=== PATIENT | male | born 2000 | race African-American/Black ===

== ENCOUNTER 2020-01-15 10:59 | Emergency (ER) | payer OTHER ==
[~2020-01-15] VITALS: Ht 144.8 cm; Wt 54.5 kg
[2020-01-15 14:10] VITALS: BP 130/54
== END 2020-01-15 14:15 | disposition home or self-care (01) ==
LOC: EMS 11:08
DX: B34.9 Viral infection, unspecified (principal); R06.02 Shortness of breath; R42 Dizziness and giddiness; R11.2 Nausea with vomiting, unspecified; Z03.818 Encounter for observation for suspected exposure to other biological agents ruled out
CPT/HCPCS: 99283; U0003

== ENCOUNTER 2020-02-28 15:52 | Emergency (ER) | payer OTHER ==
[~2020-02-28] VITALS: Ht 144.8 cm; Wt 59.1 kg
[2020-02-28] MEDS ORDERED: LIDOCAINE/PF 1% 5 ML VIAL INJ ONE (17:45)
[2020-02-28] MEDS ORDERED: SULFAMETHOX/TRIMETH DS 800-160 MG/TABLET PO ONE (17:45)
[2020-02-28] MEDS ORDERED: IBUPROFEN 400 MG TABLET PO ONE (17:45)
[2020-02-28] MEDS ORDERED: CEPHALEXIN MONOHYDRATE 500 MG CAPSULE PO ONE (17:45)
[2020-02-28 18:30] VITALS: BP 147/66
== END 2020-02-28 18:50 | disposition home or self-care (01) ==
LOC: EMS 15:53
DX: N49.2 Inflammatory disorders of scrotum (principal)
CPT/HCPCS: 55100; 99284; J2001

== ENCOUNTER 2020-04-06 10:00 | Emergency (ER) | payer OTHER ==
[~2020-04-06] VITALS: Ht 149.9 cm; Wt 57.7 kg
[2020-04-06] MEDS ORDERED: ALBU8HFA IH (10:04)
[2020-04-06 10:55] VITALS: BP 114/63
== END 2020-04-06 11:19 | disposition home or self-care (01) ==
LOC: EMS 10:03
DX: N49.2 Inflammatory disorders of scrotum (principal); F12.90 Cannabis use, unspecified, uncomplicated
CPT/HCPCS: 99283; Z7502

== ENCOUNTER 2020-04-26 00:53 | Emergency (ER) | payer OTHER ==
[~2020-04-26] VITALS: Ht 149.9 cm; Wt 59.1 kg
[~2020-04-26 00:53] MED LIST: ALBU8HFA IH
[2020-04-26] MEDS ORDERED: ACETAMINOPHEN 500 MG TABLET PO ONE (02:30)
[2020-04-26 05:15] VITALS: BP 128/71
== END 2020-04-26 05:29 | disposition home or self-care (01) ==
LOC: EMS 00:53
DX: S93.401A Sprain of unspecified ligament of right ankle, initial encounter (principal); J45.909 Unspecified asthma, uncomplicated; F12.90 Cannabis use, unspecified, uncomplicated; V49.40XA Driver injured in collision with unspecified motor vehicles in traffic accident, initial encounter; Y93.89 Activity, other specified; Y92.89 Other specified places as the place of occurrence of the external cause; Y99.8 Other external cause status
CPT/HCPCS: 29515; 73610-TC; Z7502; Z7610

== ENCOUNTER 2020-04-29 16:08 | Emergency (ER) | payer OTHER ==
[~2020-04-29] VITALS: Ht 149.9 cm; Wt 54.5 kg
[2020-04-29 18:00] VITALS: BP 121/77
== END 2020-04-29 18:23 | disposition home or self-care (01) ==
LOC: EMS 16:08
DX: S70.01XA Contusion of right hip, initial encounter (principal); S33.5XXA Sprain of ligaments of lumbar spine, initial encounter; X58.XXXA Exposure to other specified factors, initial encounter; Y93.89 Activity, other specified; Y92.89 Other specified places as the place of occurrence of the external cause; Y99.8 Other external cause status
CPT/HCPCS: 72100

== ENCOUNTER 2020-07-02 08:57 | Emergency (ER) | payer OTHER ==
[~2020-07-02] VITALS: Ht 149.9 cm; Wt 55.9 kg
[2020-07-02 09:16] VITALS: BP 121/92
== END 2020-07-02 09:52 | disposition home or self-care (01) ==
LOC: EMS 08:57
DX: N49.2 Inflammatory disorders of scrotum (principal); J45.909 Unspecified asthma, uncomplicated; F12.90 Cannabis use, unspecified, uncomplicated

== ENCOUNTER 2020-08-01 13:14 | Emergency (ER) | payer OTHER ==
[~2020-08-01] VITALS: Ht 147.3 cm; Wt 56.8 kg
[2020-08-01 16:53] VITALS: BP 136/89
== END 2020-08-01 17:12 | disposition home or self-care (01) ==
LOC: EMS 13:15
DX: J18.0 Bronchopneumonia, unspecified organism (principal); J02.9 Acute pharyngitis, unspecified; R07.89 Other chest pain; J45.909 Unspecified asthma, uncomplicated; F12.90 Cannabis use, unspecified, uncomplicated
CPT/HCPCS: 93005; 71045-TC

== ENCOUNTER 2021-06-19 06:54 | Emergency (ER) | payer OTHER ==
[~2021-06-19] VITALS: Ht 149.9 cm; Wt 68.2 kg
[2021-06-19] MEDS ORDERED: SODIUM CHLORIDE 0.9% 1,000 ML IV ONE (08:00)
[2021-06-19 08:17] LABS: BASOPHILS % (AUTO) 0.5 % (0.0-2.0); EOSINOPHILS % (AUTO) 0.4 % (1.0-6.0); HEMATOCRIT 42.3 % (41-53); HEMOGLOBIN 14.3 g/dL (13.5-17.5); LYMPHOCYTES # (AUTO) 1.3 K/uL (1.0-4.8); LYMPHOCYTES % (AUTO) 16.5 % (22.0-44.0); MEAN CORPUSCULAR HEMOGLOBIN 30.8 pg (26.0-34.0); MEAN CORPUSCULAR HGB CONC 33.8 G/dL (31.0-37.0); MEAN CORPUSCULAR VOLUME 91 fL (80-100); MONOCYTES # (AUTO) 0.6 K/uL (0.1-1.0); MONOCYTES % (AUTO) 7.7 % (2.0-9.0); NEUTROPHILS # (AUTO) 5.9 K/uL (1.8-7.7); NEUTROPHILS % (AUTO) 74.9 % (40.0-70.0); PLATELET COUNT (AUTO) 199 K/uL (150-450); RED BLOOD CELL COUNT(AUTO) 4.64 MIL/uL (4.50-5.90); RED CELL DISTRIBUTION WIDTH 12.5 % (11.5-14.5)
[2021-06-19 08:25] LABS: ANION GAP 9 mmol/L (8-16); CALCIUM, TOTAL 9.6 mg/dL (8.8-10.5); CARBON DIOXIDE 31 mmol/L (22-29); CHLORIDE 103 mmol/L (98-107); CREATININE 0.92 mg/dL (0.60-1.30); GLOMERULAR FILTR. RATE CALC > 60 mL/min (>60); GLUCOSE,RANDOM 99 mg/dL (70-110); POTASSIUM 3.8 mmol/L (3.5-5.1); SODIUM SERUM 143 mmol/L (136-145); UREA NITROGEN, BLOOD 11 mg/dL (7-18)
[2021-06-19 08:26] LABS: COVID AG,FIA SOURCE NASOPHARYNGEAL
[2021-06-19 08:37] LABS: SALICYLATE < 2.8 mg/dL (2.8-20.0)
[2021-06-19 08:51] LABS: ALANINE AMINOTRANSFERASE 23 U/L (12-78); ALBUMIN 4.6 g/dL (3.4-5.0); ALKALINE PHOSPHATASE 59 U/L (46-116); ASPARTATE AMINOTRANSFERASE 19 U/L (15-37); BILIRUBIN,TOTAL 0.6 mg/dL (0.1-1.0); CREATINE KINASE, TOTAL ONLY 137 U/L (39-308); TOTAL PROTEIN, SERUM 8.3 g/dL (6.4-8.2)
[2021-06-19 08:52] LABS: ACETAMINOPHEN < 2 mcg/mL (10-30)
[2021-06-19 08:53] LABS: INFLUENZA TYPE A NEGATIVE FOR TYPE A (NEGATIVE); INFLUENZA TYPE B NEGATIVE FOR TYPE B (NEGATIVE)
[2021-06-19 11:10] VITALS: BP 144/52
== END 2021-06-19 11:35 | disposition home or self-care (01) ==
LOC: EMS 06:58
DX: R25.8 Other abnormal involuntary movements (principal); Z20.822 Contact with and (suspected) exposure to COVID-19
CPT/HCPCS: 36415; 70450; 71045; 80053; 82550; 85025; 87040; 87426; 87804; 93005; 96360; 99285; G0480 ×2; G0481; U0003

== ENCOUNTER 2021-10-11 11:49 | Emergency (ER) | payer OTHER ==
[~2021-10-11] VITALS: Ht 149.9 cm; Wt 50.0 kg
[2021-10-11 12:00] VITALS: BP 135/80
[2021-10-11 12:31] LABS: COVID AG,FIA SOURCE NASOPHARYNGEAL
== END 2021-10-11 13:18 | disposition home or self-care (01) ==
LOC: EMS 11:49
DX: Z20.822 Contact with and (suspected) exposure to COVID-19 (principal); F12.90 Cannabis use, unspecified, uncomplicated; J45.909 Unspecified asthma, uncomplicated; Z79.899 Other long term (current) drug therapy
CPT/HCPCS: 99283

== ENCOUNTER 2022-03-27 06:39 | Emergency (ER) | payer OTHER ==
[~2022-03-27] VITALS: Ht 142.2 cm; Wt 56.0 kg
[2022-03-27 06:45] VITALS: BP 137/84
[2022-03-27] MEDS ORDERED: DOXY-354 PO (18:29)
== END 2022-03-27 07:35 | disposition left against medical advice (07) ==
LOC: EMS 06:40
DX: Z53.21 Procedure and treatment not carried out due to patient leaving prior to being seen by health care provider (principal)

== ENCOUNTER 2022-03-27 16:01 | Emergency (ER) | payer OTHER ==
[~2022-03-27] VITALS: Ht 149.9 cm; Wt 50.9 kg
[2022-03-27 17:30] LABS: COVID AG,FIA SOURCE NASOPHARYNGEAL
[2022-03-27 17:38] LABS: APPEARANCE,URINE HAZY (CLEAR); BILIRUBIN,URINE NEGATIVE (NEGATIVE); GLUCOSE, URINE (UA) NEGATIVE (NEGATIVE); KETONES,URINE TRACE mg/dL (NEGATIVE); LEUKOCYTE ESTERASE ,URINE LARGE (NEGATIVE); NITRATE,URINE NEGATIVE (NEGATIVE); OCCULT BLOOD,URINE MODERATE (NEGATIVE); PROTEIN,URINE 30-70 mg/dL (NEGATIVE); SPECIFIC GRAVITIY, URINE 1.025 (1.003-1.030); UROBILINOGEN,URINE <=1.0 mg/dL (<=1.0)
[2022-03-27 17:52] LABS: BACTERIA,URINE Few /HPF (None Seen); WBC,URINE >100 /HPF (0-5)
[2022-03-27] MEDS ORDERED: DOXY-354 PO (18:29)
[2022-03-27] MEDS ORDERED: LIDOCAINE/PF 1% 2 ML VIAL IM ONE (18:30)
[2022-03-27] MEDS ORDERED: CefTRIAXone SODIUM 1 GM/VIAL IM ONE (18:30)
[2022-03-27] MEDS ORDERED: DOXYCYCLINE HYCLATE 100 MG TABLET PO ONE (18:30)
[2022-03-27 21:15] VITALS: BP 115/61
== END 2022-03-27 21:35 | disposition home or self-care (01) ==
LOC: EMS 16:03
DX: N34.2 Other urethritis (principal); N45.1 Epididymitis; J45.909 Unspecified asthma, uncomplicated; F12.90 Cannabis use, unspecified, uncomplicated; Z20.822 Contact with and (suspected) exposure to COVID-19
CPT/HCPCS: 99284; 87426; 81001; 87086; 76870; 87491; 87591; 96372; J0696; J3490

== ENCOUNTER 2022-07-18 18:28 | Emergency (ER) | payer OTHER ==
[~2022-07-18] VITALS: Ht 152.4 cm; Wt 59.1 kg
[~2022-07-18 18:28] MED LIST changes: +DOXY-354 PO
[2022-07-18 20:38] VITALS: BP 140/74
[2022-07-18] MEDS ORDERED: DOXY-354 PO (20:55)
[2022-07-18] MEDS ORDERED: CEPH-558 PO (20:55)
[2022-07-18] MEDS ORDERED: CEPHALEXIN MONOHYDRATE 500 MG CAPSULE PO ONE (21:00)
[2022-07-18] MEDS ORDERED: DOXYCYCLINE HYCLATE 100 MG TABLET PO ONE (21:00)
== END 2022-07-18 21:06 | disposition home or self-care (01) ==
LOC: EMS 18:28
DX: N49.2 Inflammatory disorders of scrotum (principal); F12.90 Cannabis use, unspecified, uncomplicated; J45.909 Unspecified asthma, uncomplicated
CPT/HCPCS: 99283

== ENCOUNTER 2022-11-27 23:49 | Emergency (ER) | payer OTHER ==
[~2022-11-27] VITALS: Ht 149.9 cm; Wt 59.1 kg
[~2022-11-27 23:49] MED LIST changes: +ALBU18HF12 IH; -ALBU8HFA IH; +CEPH-558 PO
[2022-11-28] MEDS ORDERED: LevETIRAcetam 1,000 MG in DEXTROSE 5%-WATER 100 ML IV ONE (01:30)
[2022-11-28 01:56] LABS: BASOPHILS % (AUTO) 0.6 % (0.0-2.0); EOSINOPHILS % (AUTO) 1.6 % (1.0-6.0); HEMATOCRIT 37.7 % (41-53); HEMOGLOBIN 12.6 g/dL (13.5-17.5); LYMPHOCYTES # (AUTO) 1.2 K/uL (1.0-4.8); LYMPHOCYTES % (AUTO) 18.2 % (22.0-44.0); MEAN CORPUSCULAR HEMOGLOBIN 29.7 pg (26.0-34.0); MEAN CORPUSCULAR HGB CONC 33.5 G/dL (31.0-37.0); MEAN CORPUSCULAR VOLUME 89 fL (80-100); MONOCYTES # (AUTO) 0.6 K/uL (0.1-1.0); MONOCYTES % (AUTO) 9.4 % (2.0-9.0); NEUTROPHILS # (AUTO) 4.8 K/uL (1.8-7.7); NEUTROPHILS % (AUTO) 70.2 % (40.0-70.0); PLATELET COUNT (AUTO) 224 K/uL (150-450); RED BLOOD CELL COUNT(AUTO) 4.26 MIL/uL (4.50-5.90)
[2022-11-28 02:06] LABS: ANION GAP 5 mmol/L (8-16); CALCIUM, TOTAL 9.5 mg/dL (8.8-10.5); CARBON DIOXIDE 29 mmol/L (22-29); CHLORIDE 104 mmol/L (98-107); GLOMERULAR FILTR. RATE CALC > 60 mL/min (>60); GLUCOSE,RANDOM 92 mg/dL (70-110); POTASSIUM 3.4 mmol/L (3.5-5.1); SODIUM SERUM 138 mmol/L (136-145); UREA NITROGEN, BLOOD 7 mg/dL (7-18)
[2022-11-28 02:16] LABS: B-TYPE NATRIURETIC PEPTIDE 10 pg/mL (0-100)
[2022-11-28 02:31] LABS: ALANINE AMINOTRANSFERASE 22 U/L (12-78); ALKALINE PHOSPHATASE 60 U/L (46-116); ASPARTATE AMINOTRANSFERASE 24 U/L (15-37); BILIRUBIN,TOTAL 0.3 mg/dL (0.1-1.0); CREATINE KINASE, TOTAL ONLY 328 U/L (39-308); TOTAL PROTEIN, SERUM 7.2 g/dL (6.4-8.2)
[2022-11-28 03:15] VITALS: BP 151/82
[2022-11-28] MEDS ORDERED: LEVE500T20 PO (05:17)
== END 2022-11-28 05:48 | disposition home or self-care (01) ==
LOC: EMS 23:50
DX: R56.9 Unspecified convulsions (principal); J45.909 Unspecified asthma, uncomplicated; F12.90 Cannabis use, unspecified, uncomplicated
CPT/HCPCS: 99285; 80053; 82550; 83880; 84484; 85025; 36415; 70450; 96365; 71045; 72125; 93005; G0480; J0712; J7060